=== PATIENT | female | born 1945 | race Native Hawaiian/Other Pacific Islander ===

== ENCOUNTER 2020-05-27 20:36 | Outpatient (CLI) | payer OTHER ==
[2020-05-28 00:35] LABS: POTASSIUM 4.3 mmol/L (3.6-5.2)
[2020-05-28 00:47] LABS: PLATELET COUNT 205 K/uL (152-353)
== END 2020-05-27 23:04 | disposition home or self-care (01) ==
LOC: LAB 20:36
PROVIDERS: ATTEND Nurse Practitioner Family
DX: Z00.00 Encounter for general adult medical examination without abnormal findings (principal); Z79.899 Other long term (current) drug therapy; E10.9 Type 1 diabetes mellitus without complications; F41.8 Other specified anxiety disorders; I10 Essential (primary) hypertension; E78.49 Other hyperlipidemia; F03.90 Unspecified dementia, unspecified severity, without behavioral disturbance, psychotic disturbance, mood disturbance, and anxiety
CPT/HCPCS: 80053; 80061; 82306; 82607; 83036; 84439; 84443; 85027